=== PATIENT | male | born 1945 | race Caucasian/White ===

== ENCOUNTER 2017-12-20 11:13 | Inpatient (IN) | payer MEDICARE, BC ==
[~2017-12-20] VITALS: Ht 182.9 cm; Wt 67.3 kg
[2017-12-20] VITALS (13 sets, daily range): BP systolic 97–119; BP diastolic 51–68
[~2017-12-20 11:13] MED LIST: CALC-1197 PO; HYDR-565 PO; MULT-342 PO; OCTR1000 SQ
[2017-12-20] MEDS: levoFLOXACIN-Levaquin 500mg/D5 100 ML IV SCH (12:44)
[2017-12-20 12:45] LABS: BASOPHILS % (AUTO) 0.1 % (0-1); EOSINOPHILS % (AUTO) 0 % (0-6); HEMATOCRIT 29.5 % (42.0-52.0); HEMOGLOBIN 10.1 g/dl (14.0-17.9); LYMPHOCYTES # (AUTO) 0.6 X10'3 (1.1-4.8); LYMPHOCYTES % (AUTO) 7.8 % (21-51); MEAN CORPUSCULAR HEMOGLOBIN 29.7 PG (27.0-31.0); MEAN CORPUSCULAR HGB CONC 34.2 % (33.0-36.5); MEAN PLATELET VOLUME 9.3 FL (7.4-10.4); MONOCYTES # (AUTO) 0.5 X10'3 (0-0.9); MONOCYTES % (AUTO) 7.3 % (2-12); NEUTROPHILS # (AUTO) 6.1 X10'3 (1.8-7.7); NEUTROPHILS % (AUTO) 84.8 % (42-75); PLATELET COUNT 119 X10'3 (140-440); RED BLOOD COUNT 3.39 X10'6 (4.70-6.10); RED CELL DISTRIBUTION WIDTH 14.4 % (11.5-14.5); WHITE BLOOD COUNT 7.2 X10'3 (4.5-11.0)
[2017-12-20] MEDS: ringers solution, lacted 1,000 ML IV SCH (12:45)
[2017-12-20 13:00] LABS: ALANINE AMINOTRANSFERASE 17 U/L (12-78); ALBUMIN/GLOBULIN RATIO 0.9 (1.1-1.5); ALKALINE PHOSPHATASE 63 IU/L (46-116); ANION GAP 8 (8-16); ASPARTATE AMINO TRANSFERASE 25 U/L (10-37); BILIRUBIN,TOTAL 1.7 MG/DL (0.1-1.0); BLOOD UREA NITROGEN 15 MG/DL (7-18); BUN/CREATININE RATIO 11.4 (5.4-32.0); CHLORIDE 102 MMOL/L (99-107); CREATININE 1.32 MG/DL (0.60-1.10); GLUCOSE 124 MG/DL (70-104); POTASSIUM 3.7 MMOL/L (3.5-5.1); SODIUM 138 MMOL/L (135-145); TOTAL CARBON DIOXIDE 27.6 MMOL/L (24-32); TOTAL PROTEIN 6.2 G/DL (6.4-8.2); eGFR 54 ML/MIN
[2017-12-20] MEDS: ondansetron/PF 4mg/2ml inj IV PRN (13:44)
[2017-12-20] MEDS: acetaminophen 325mg tablet PO PRN (13:46)
[2017-12-20 17:41] LABS: INR 1.3 INR; PARTIAL THROMBOPLASTIN TIME 29 SECONDS (22-32); PROTHROMBIN TIME 13.4 SECONDS (9.0-12.0)
[2017-12-20] MEDS ORDERED: acetaminophen 1,000mg/100ml IV 100 ML IV ONE (18:00)
[2017-12-20] MEDS ORDERED: fentaNYL/PF 50MCG/1 ML 2ML syringe ONE (18:27)
[2017-12-20] MEDS ORDERED: midazolam 2 mg/2 ml injection ONE (18:27)
[2017-12-20] MEDS ORDERED: propofol inj 20 ML IV ONE (18:36)
[2017-12-20] MEDS ORDERED: ePHEDrine 50MG/ML INJ. ONE (18:48)
[2017-12-20] MEDS ORDERED: ringers solution, lacted 1,000 ML IV SCH (19:04)
[2017-12-20] MEDS ORDERED: meperidine/PF 50mg/ml syringe IV PRN ×3 (19:05)
[2017-12-20] MEDS ORDERED: morphine 2 MG/ML inj. syringe IV PRN ×2 (19:05)
[2017-12-20] MEDS ORDERED: proCHLORperazine 10 MG/2 ml inj IV PRN (19:05)
[2017-12-20] MEDS ORDERED: ondansetron/PF 4mg/2ml inj IV PRN (19:05)
[2017-12-21] VITALS: BP 127/70
[2017-12-21 00:15] VITALS: BP 98/63
[2017-12-21] MEDS: ringers solution, lacted 1,000 ML IV SCH ×2 (00:49→15:45)
[2017-12-21 04:00] VITALS: BP 122/76
[2017-12-21] MEDS: lactobacillus rhamnosus 10,000 MMU CELLS/CAPSULE PO SCH ×2 (07:15→17:37)
[2017-12-21] MEDS: acetaminophen 325mg tablet PO PRN ×4 (07:16→21:40)
[2017-12-21] MEDS: levoFLOXACIN-Levaquin 500mg/D5 100 ML IV SCH (07:16)
[2017-12-21 07:22] VITALS: BP 115/50
[2017-12-21 12:03] VITALS: BP 103/46
[2017-12-21] MEDS ORDERED: ketorolac tromethamine 15mg/ml inj. IV ONE (14:25)
[2017-12-21 20:00] VITALS: BP 96/50
[2017-12-21] MEDS ORDERED: diphenhydrAMINE 25mg capsule PO PRN (21:00)
[2017-12-22] VITALS: BP 100/47
[2017-12-22] MEDS: ringers solution, lacted 1,000 ML IV SCH ×2 (04:22→17:37)
[2017-12-22 05:59] LABS: BASOPHILS % (AUTO) 0.1 % (0-1); EOSINOPHILS % (AUTO) 0 % (0-6); HEMATOCRIT 32.6 % (42.0-52.0); HEMOGLOBIN 10.8 g/dl (14.0-17.9); LYMPHOCYTES # (AUTO) 0.7 X10'3 (1.1-4.8); LYMPHOCYTES % (AUTO) 12.1 % (21-51); MEAN CORPUSCULAR HEMOGLOBIN 29.1 PG (27.0-31.0); MEAN CORPUSCULAR HGB CONC 33.1 % (33.0-36.5); MEAN CORPUSCULAR VOLUME 87.8 FL (78-98); MEAN PLATELET VOLUME 10.1 FL (7.4-10.4); MONOCYTES # (AUTO) 0.6 X10'3 (0-0.9); MONOCYTES % (AUTO) 11.3 % (2-12); NEUTROPHILS # (AUTO) 4.2 X10'3 (1.8-7.7); NEUTROPHILS % (AUTO) 76.5 % (42-75); PLATELET COUNT 87 X10'3 (140-440); RED BLOOD COUNT 3.71 X10'6 (4.70-6.10); RED CELL DISTRIBUTION WIDTH 14.1 % (11.5-14.5); WHITE BLOOD COUNT 5.5 X10'3 (4.5-11.0)
[2017-12-22 06:41] LABS: ALANINE AMINOTRANSFERASE 28 U/L (12-78); ALBUMIN 2.3 G/DL (3.4-5.0); ALBUMIN/GLOBULIN RATIO 0.7 (1.1-1.5); ALKALINE PHOSPHATASE 53 IU/L (46-116); ANION GAP 8 (8-16); ASPARTATE AMINO TRANSFERASE 25 U/L (10-37); BILIRUBIN,TOTAL 0.8 MG/DL (0.1-1.0); BLOOD UREA NITROGEN 15 MG/DL (7-18); BUN/CREATININE RATIO 10.6 (5.4-32.0); CALCIUM 7.9 MG/DL (8.5-10.1); CHLORIDE 102 MMOL/L (99-107); CREATININE 1.41 MG/DL (0.60-1.10); GLUCOSE 107 MG/DL (70-104); POTASSIUM 4.1 MMOL/L (3.5-5.1); SODIUM 137 MMOL/L (135-145); TOTAL CARBON DIOXIDE 27.3 MMOL/L (24-32); TOTAL PROTEIN 5.7 G/DL (6.4-8.2); eGFR 50 ML/MIN
[2017-12-22 08:04] VITALS: BP 115/55
[2017-12-22] MEDS: levoFLOXACIN-Levaquin 500mg/D5 100 ML IV SCH (08:39)
[2017-12-22] MEDS: lactobacillus rhamnosus 10,000 MMU CELLS/CAPSULE PO SCH ×2 (08:39→16:46)
[2017-12-22 11:30] VITALS: BP 125/59
[2017-12-22 20:00] VITALS: BP 112/54
[2017-12-22] MEDS: HYDROcodone/acetaminophen 5mg/325mg tablet PO PRN (20:07)
[2017-12-23] VITALS: BP 125/62
[2017-12-23] MEDS: HYDROcodone/acetaminophen 5mg/325mg tablet PO PRN (00:14)
[2017-12-23 05:13] LABS: BASOPHILS % (AUTO) 0.3 % (0-1); EOSINOPHILS % (AUTO) 0.8 % (0-6); HEMATOCRIT 29.7 % (42.0-52.0); HEMOGLOBIN 10.1 g/dl (14.0-17.9); LYMPHOCYTES # (AUTO) 0.8 X10'3 (1.1-4.8); LYMPHOCYTES % (AUTO) 18.1 % (21-51); MEAN CORPUSCULAR HEMOGLOBIN 29.1 PG (27.0-31.0); MEAN CORPUSCULAR HGB CONC 34.1 % (33.0-36.5); MEAN CORPUSCULAR VOLUME 85.4 FL (78-98); MEAN PLATELET VOLUME 9.8 FL (7.4-10.4); MONOCYTES # (AUTO) 0.6 X10'3 (0-0.9); MONOCYTES % (AUTO) 15.2 % (2-12); NEUTROPHILS # (AUTO) 2.7 X10'3 (1.8-7.7); NEUTROPHILS % (AUTO) 65.6 % (42-75); PLATELET COUNT 86 X10'3 (140-440); RED BLOOD COUNT 3.48 X10'6 (4.70-6.10); RED CELL DISTRIBUTION WIDTH 14.2 % (11.5-14.5); WHITE BLOOD COUNT 4.2 X10'3 (4.5-11.0)
[2017-12-23] MEDS: ondansetron/PF 4mg/2ml inj IV PRN (05:34)
[2017-12-23 05:50] LABS: ALANINE AMINOTRANSFERASE 23 U/L (12-78); ALBUMIN 2.1 G/DL (3.4-5.0); ALBUMIN/GLOBULIN RATIO 0.7 (1.1-1.5); ALKALINE PHOSPHATASE 47 IU/L (46-116); ANION GAP 9 (8-16); ASPARTATE AMINO TRANSFERASE 25 U/L (10-37); BILIRUBIN,TOTAL 0.5 MG/DL (0.1-1.0); BLOOD UREA NITROGEN 11 MG/DL (7-18); BUN/CREATININE RATIO 9.5 (5.4-32.0); CALCIUM 7.9 MG/DL (8.5-10.1); CHLORIDE 104 MMOL/L (99-107); CREATININE 1.16 MG/DL (0.60-1.10); GLUCOSE 110 MG/DL (70-104); POTASSIUM 3.2 MMOL/L (3.5-5.1); SODIUM 140 MMOL/L (135-145); TOTAL CARBON DIOXIDE 26.6 MMOL/L (24-32); TOTAL PROTEIN 5.3 G/DL (6.4-8.2); eGFR 62 ML/MIN
[2017-12-23] MEDS: ringers solution, lacted 1,000 ML IV SCH (06:55)
[2017-12-23 07:10] VITALS: BP 128/66
[2017-12-23] MEDS: lactobacillus rhamnosus 10,000 MMU CELLS/CAPSULE PO SCH ×2 (08:07→17:39)
[2017-12-23] MEDS: levoFLOXACIN-Levaquin 500mg/D5 100 ML IV SCH (08:07)
[2017-12-23 11:33] VITALS: BP 127/68
[2017-12-23] MEDS ORDERED: LEVO500T2 PO (17:59)
== END 2017-12-23 19:06 | disposition home or self-care (01) | DRG 669 ==
LOC: SUR 3N 11:26 → PACU 17:48 → SUR 3N 21:30
PROVIDERS: ADMIT Urology; ATTEND Urology
PROC: 0TC78ZZ Extirpation of Matter from Left Ureter, Via Natural or Artificial Opening Endoscopic (ICD-10-PCS; 2017-12-20)
PROC: 0T788DZ Dilation of Bilateral Ureters with Intraluminal Device, Via Natural or Artificial Opening Endoscopic (ICD-10-PCS; 2017-12-20)
PROC: 0TCB8ZZ Extirpation of Matter from Bladder, Via Natural or Artificial Opening Endoscopic (ICD-10-PCS; 2017-12-20)
PROC: 0TC68ZZ Extirpation of Matter from Right Ureter, Via Natural or Artificial Opening Endoscopic (ICD-10-PCS; principal; 2017-12-20 18:24)
DX: N20.1 Calculus of ureter (principal); N12 Tubulo-interstitial nephritis, not specified as acute or chronic; E86.0 Dehydration; E78.00 Pure hypercholesterolemia, unspecified; I25.10 Atherosclerotic heart disease of native coronary artery without angina pectoris; N40.1 Benign prostatic hyperplasia with lower urinary tract symptoms; R33.8 Other retention of urine; N21.0 Calculus in bladder; Z95.1 Presence of aortocoronary bypass graft
CPT/HCPCS: 36415; 71045; 74176; 76000; 80053; 85025; 85610; 85730; 87070; 88300; 93005; A4402; A7000; C2617; J0131; J1885; J1956; J2250; J2405; J2704; J3010; J7030; J7120; Q0163

== ENCOUNTER 2020-08-04 06:52 | Day surgery (SDC) | payer MEDICARE, BC ==
[2020-07-30 11:23] LABS: BASOPHILS % (AUTO) 0.6 % (0-1); EOSINOPHILS % (AUTO) 0.8 % (0-6); HEMATOCRIT 38.9 % (42.0-52.0); HEMOGLOBIN 12.9 g/dl (14.0-17.9); LYMPHOCYTES # (AUTO) 1.3 X10'3 (1.1-4.8); LYMPHOCYTES % (AUTO) 25.7 % (21-51); MEAN CORPUSCULAR HEMOGLOBIN 30.1 PG (27.0-31.0); MEAN CORPUSCULAR HGB CONC 33.1 g/dL (33.0-36.5); MEAN CORPUSCULAR VOLUME 90.9 FL (78-98); MEAN PLATELET VOLUME 9.1 FL (7.4-10.4); MONOCYTES # (AUTO) 0.3 X10'3 (0-0.9); MONOCYTES % (AUTO) 5.8 % (2-12); NEUTROPHILS # (AUTO) 3.3 X10'3 (1.8-7.7); NEUTROPHILS % (AUTO) 67.1 % (42-75); PLATELET COUNT 108 X10'3 (140-440); RED BLOOD COUNT 4.28 X10'6 (4.70-6.10); RED CELL DISTRIBUTION WIDTH 15.5 % (11.5-14.5)
[2020-07-30 11:31] LABS: ALBUMIN 4.4 G/DL (3.4-5.0); ANION GAP 9 (8-16); BLOOD UREA NITROGEN 17 MG/DL (7-18); BUN/CREATININE RATIO 10.9 (5.4-32.0); CALCIUM 9.2 MG/DL (8.5-10.1); CHLORIDE 105 MMOL/L (99-107); CREATININE 1.56 MG/DL (0.60-1.10); GLUCOSE 98 MG/DL (70-104); POTASSIUM 3.7 MMOL/L (3.5-5.1); SODIUM 139 MMOL/L (135-145); TOTAL CARBON DIOXIDE 24.9 MMOL/L (24-32); eGFR 44 ML/MIN
[2020-07-30 11:33] LABS: PARTIAL THROMBOPLASTIN TIME 29 SECONDS (22-32)
[~2020-08-04] VITALS: Ht 182.9 cm; Wt 69.0 kg
[2020-08-04 07:25] VITALS: BP 128/66
[2020-08-04] MEDS ORDERED: normal saline 1,000 ML IV SCH (07:25)
[2020-08-04] MEDS ORDERED: diphenhydrAMINE 25mg capsule PO PRN (07:25)
[2020-08-04] MEDS ORDERED: LORazepam 0.5 MG tablet PO PRN (07:25)
[2020-08-04] MEDS ORDERED: LORazepam 0.5 MG tablet ONE (08:37)
[2020-08-04] MEDS ORDERED: diphenhydrAMINE 25mg capsule PO ONE (08:37)
[2020-08-04] MEDS ORDERED: METR250T PO (08:45)
[2020-08-04] MEDS ORDERED: CEPH500C2 PO (08:45)
[2020-08-04] MEDS ORDERED: [UNRECOGNIZED DRUG - CODE] (08:45)
[2020-08-04] MEDS ORDERED: FLO0.4C PO (08:45)
[2020-08-04] MEDS ORDERED: vitamin e PO (08:45)
[2020-08-04] MEDS ORDERED: vitamin A PO (08:45)
[2020-08-04] MEDS ORDERED: GABA-530 PO (08:45)
[2020-08-04] MEDS ORDERED: OCTREOTIDE ACETATE (08:45)
[2020-08-04] MEDS ORDERED: LEVO50TA8 PO (08:45)
[2020-08-04] MEDS ORDERED: CALC-1215 PO (08:45)
[2020-08-04] MEDS ORDERED: MV-M1TAB19 PO (08:45)
[2020-08-04] MEDS ORDERED: nitroGLYCERIN-Tridil 50MG/D5W 250 ML IV ONE (09:36)
[2020-08-04] MEDS ORDERED: verapamil 2.5 mg/ml inj IV ONE (09:36)
[2020-08-04] MEDS ORDERED: midazolam 2 mg/2 ml injection ONE (09:36)
[2020-08-04] MEDS ORDERED: heparin 1,000unit/ml 10ml vial 10 ML ONE (09:37)
[2020-08-04] MEDS ORDERED: iohexol 350MG/ML 100ml bottle IV ONE (09:37)
[2020-08-04] MEDS ORDERED: LIDOcaine 1% (10mg/ml)w/preservative injection 20ml MDV ONE (09:37)
[2020-08-04] MEDS ORDERED: fentaNYL/PF 50MCG/1 ML 2ML syringe ONE (09:37)
[2020-08-04 10:35] VITALS: BP 138/63
[2020-08-04] MEDS ORDERED: proCHLORperazine 10 MG/2 ml inj IV PRN (10:55)
[2020-08-04] MEDS ORDERED: OXAZEpam 15mg capsule PO PRN (10:55)
[2020-08-04] MEDS ORDERED: nitroGLYCERIN 0.4mg SUBLingual tab SL PRN (10:55)
[2020-08-04] MEDS ORDERED: HYDROcodone/acetaminophen 10/325mg tab PO PRN (10:55)
[2020-08-04] MEDS ORDERED: ondansetron/PF 4mg/2ml inj IV PRN (10:55)
[2020-08-04] MEDS ORDERED: acetaminophen 325mg tablet PO PRN (10:55)
[2020-08-04] MEDS ORDERED: HYDROcodone/acetaminophen 5mg/325mg tablet PO PRN (10:55)
[2020-08-04 11:04] VITALS: BP 136/59
[2020-08-04 11:19] VITALS: BP 129/56
[2020-08-04 11:34] VITALS: BP 133/56
[2020-08-04 11:49] VITALS: BP 130/62
== END 2020-08-04 13:00 | disposition home or self-care (01) ==
LOC: SSTAY O 06:52
PROVIDERS: ATTEND Student in an Organized Health Care Education/Training Program
DX: R94.39 Abnormal result of other cardiovascular function study (principal); T82.858A Stenosis of other vascular prosthetic devices, implants and grafts, initial encounter; I25.10 Atherosclerotic heart disease of native coronary artery without angina pectoris; I25.82 Chronic total occlusion of coronary artery; E78.5 Hyperlipidemia, unspecified; Z79.899 Other long term (current) drug therapy; Z87.442 Personal history of urinary calculi; Z85.89 Personal history of malignant neoplasm of other organs and systems; Z91.040 Latex allergy status; Y83.8 Other surgical procedures as the cause of abnormal reaction of the patient, or of later complication, without mention of misadventure at the time of the procedure; Y92.89 Other specified places as the place of occurrence of the external cause
CPT/HCPCS: 36415; 80048; 85025; 85610; 85730; 93005; 93459; 99152; 99153; C1760; C1769; C1894; J1644; J2001; J2250; J3010; J7030; Q0163; Q9967; A6258; J3490

== ENCOUNTER 2021-09-13 10:10 | Emergency (ER) | payer MEDICARE, BC ==
[~2021-09-13] VITALS: Ht 182.9 cm; Wt 78.7 kg
[~2021-09-13 10:10] MED LIST changes: -CALC-1197 PO; +CALC-1215 PO; +CEPH500C2 PO; +DOXY25TA19 PO; +FLO0.1T PO; +FLO0.4C PO; +GABA-530 PO; -HYDR-565 PO; +LEVO50TA8 PO; +MAGN400T29 PO; +METR250T PO; -MULT-342 PO; +MV-M1TAB19 PO; -OCTR1000 SQ
[2021-09-13 12:02] LABS: BASOPHILS % (AUTO) 0.2 % (0-1); EOSINOPHILS % (AUTO) 0.6 % (0-6); HEMATOCRIT 34.6 % (42.0-52.0); HEMOGLOBIN 11.5 g/dl (14.0-17.9); LYMPHOCYTES # (AUTO) 0.5 X10'3 (1.1-4.8); LYMPHOCYTES % (AUTO) 14.3 % (21-51); MEAN CORPUSCULAR HEMOGLOBIN 27.8 PG (27.0-31.0); MEAN CORPUSCULAR HGB CONC 33.2 g/dL (33.0-36.5); MEAN CORPUSCULAR VOLUME 83.8 FL (78-98); MEAN PLATELET VOLUME 9.9 FL (7.4-10.4); MONOCYTES # (AUTO) 0.3 X10'3 (0-0.9); MONOCYTES % (AUTO) 8.6 % (2-12); NEUTROPHILS # (AUTO) 2.6 X10'3 (1.8-7.7); NEUTROPHILS % (AUTO) 76.3 % (42-75); PLATELET COUNT 67 X10'3 (140-440); RED BLOOD COUNT 4.13 X10'6 (4.70-6.10); RED CELL DISTRIBUTION WIDTH 17.3 % (11.5-14.5); WHITE BLOOD COUNT 3.4 X10'3 (4.5-11.0)
[2021-09-13 12:14] LABS: ALANINE AMINOTRANSFERASE 107 U/L (12-78); ALBUMIN 2.6 G/DL (3.4-5.0); ALBUMIN/GLOBULIN RATIO 0.6 (1.1-1.5); ALKALINE PHOSPHATASE 170 IU/L (46-116); ANION GAP 10 (8-16); ASPARTATE AMINO TRANSFERASE 68 U/L (10-37); BLOOD UREA NITROGEN 30 MG/DL (7-18); BUN/CREATININE RATIO 14.6 (5.4-32.0); CALCIUM 8.4 MG/DL (8.5-10.1); CHLORIDE 104 MMOL/L (99-107); CREATININE 2.05 MG/DL (0.60-1.10); GLUCOSE 107 MG/DL (70-104); POTASSIUM 4.4 MMOL/L (3.5-5.1); SODIUM 137 MMOL/L (135-145); TOTAL CARBON DIOXIDE 22.8 MMOL/L (24-32); TOTAL PROTEIN 6.9 G/DL (6.4-8.2); eGFR 32 ML/MIN
[2021-09-13 13:19] LABS: CLARITY,URINE SLIGHTLY CLOUDY (Clear); COLOR,URINE YELLOW (Yellow); GLUCOSE, URINE NEGATIVE (Neg); KETONES,URINE TRACE mg/dl (Neg); NITRITES, URINE NEGATIVE (Neg); OCCULT BLOOD,URINE SMALL (Neg); PROTEIN,URINE 30 mg/dl (Neg); UA COLLECTION TYPE CLN CATCH MIDSTREAM
[2021-09-13 13:20] LABS: LEUKOCYTE ESTERASE ,URINE MODERATE (Neg); UROBILINOGEN,URINE 0.2 E.U/dL (0.2-1.0)
[2021-09-13 13:22] LABS: WBC,URINE TNTC /HPF (0-4)
[2021-09-13 13:23] LABS: BACTERIA,URINE 1+ /HPF (Neg); SQUAMOUS EPITHELIAL CELL,UR FEW /LPF (FEW)
[2021-09-13 13:24] LABS: YEAST MODERATE /HPF (NEGATIVE)
[2021-09-13] MEDS ORDERED: CEFTRIAXONE 500 MG VIAL IM ONE (13:30)
[2021-09-13] MEDS ORDERED: ringers solution, lacted 1,000 ML IV ONE (13:35)
[2021-09-13] MEDS ORDERED: CefTRIAXone 1000mg IM Kit (w/lidocaine diluent) IM ONE (13:45)
[2021-09-13] MEDS ORDERED: CefTRIAXone 1000mg inj IV ONE (14:00)
[2021-09-13] MEDS ORDERED: normal saline 1000ml 1,000 ML IV ONE (14:45)
[2021-09-13 15:31] VITALS: BP 118/60
== END 2021-09-13 15:34 | disposition home or self-care (01) ==
LOC: ER 10:10
DX: N39.0 Urinary tract infection, site not specified (principal); E86.0 Dehydration; R42 Dizziness and giddiness; Z91.040 Latex allergy status; Z79.2 Long term (current) use of antibiotics; Z79.899 Other long term (current) drug therapy; Z72.89 Other problems related to lifestyle; Z95.5 Presence of coronary angioplasty implant and graft; Z86.2 Personal history of diseases of the blood and blood-forming organs and certain disorders involving the immune mechanism
CPT/HCPCS: 36415; 71045; 80053; 81001; 84484; 85025; 93005; 96365; 96374; 99284; 99285; J0696; J7030

== ENCOUNTER 2021-09-14 21:46 | Inpatient (IN) | payer MEDICARE, BC ==
[~2021-09-14] VITALS: Ht 182.9 cm; Wt 75.5 kg
[2021-09-14 22:22] LABS: BASOPHILS % (AUTO) 0.4 % (0-1); EOSINOPHILS % (AUTO) 0.8 % (0-6); HEMATOCRIT 33.7 % (42.0-52.0); LYMPHOCYTES # (AUTO) 0.3 X10'3 (1.1-4.8); LYMPHOCYTES % (AUTO) 9.6 % (21-51); MEAN CORPUSCULAR HEMOGLOBIN 27.4 PG (27.0-31.0); MEAN CORPUSCULAR HGB CONC 32.5 g/dL (33.0-36.5); MEAN CORPUSCULAR VOLUME 84.3 FL (78-98); MEAN PLATELET VOLUME 10.7 FL (7.4-10.4); MONOCYTES # (AUTO) 0.1 X10'3 (0-0.9); MONOCYTES % (AUTO) 2.2 % (2-12); NEUTROPHILS # (AUTO) 2.7 X10'3 (1.8-7.7); PLATELET COUNT 57 X10'3 (140-440); RED CELL DISTRIBUTION WIDTH 17.5 % (11.5-14.5); WHITE BLOOD COUNT 3.1 X10'3 (4.5-11.0)
[2021-09-14 22:39] LABS: ALANINE AMINOTRANSFERASE 77 U/L (12-78); ALBUMIN 2.2 G/DL (3.4-5.0); ALBUMIN/GLOBULIN RATIO 0.6 (1.1-1.5); ALKALINE PHOSPHATASE 252 IU/L (46-116); ANION GAP 11 (8-16); ASPARTATE AMINO TRANSFERASE 87 U/L (10-37); BILIRUBIN,DIRECT 1.3 MG/DL (0-0.3); BILIRUBIN,TOTAL 1.9 MG/DL (0.1-1.0); BLOOD UREA NITROGEN 26 MG/DL (7-18); CALCIUM 7.8 MG/DL (8.5-10.1); CHLORIDE 105 MMOL/L (99-107); GLUCOSE 97 MG/DL (70-104); LIPASE 50 U/L (73-393); SODIUM 135 MMOL/L (135-145); TOTAL CARBON DIOXIDE 18.7 MMOL/L (24-32); TOTAL PROTEIN 6.1 G/DL (6.4-8.2); eGFR 33 ML/MIN
[2021-09-14 23:11] LABS: ANISOCYTOSIS 1+; PLATELET ESTIMATE DECREASED
[2021-09-14 23:12] LABS: BURR CELLS FEW; LARGE PLATELETS FEW
[2021-09-14] MEDS ORDERED: CefTRIAXone/D5W-Rocephin 1gm 50 ML IV ONE (23:35)
[2021-09-14] MEDS ORDERED: normal saline 1000ml 1,000 ML IV ONE (23:45)
[2021-09-14 23:50] LABS: UA COLLECTION TYPE CLN CATCH MIDSTREAM
[2021-09-14 23:51] LABS: CLARITY,URINE CLOUDY (Clear); COLOR,URINE DARK YELLOW (Yellow); GLUCOSE, URINE NEGATIVE (Neg); KETONES,URINE NEGATIVE (Neg); OCCULT BLOOD,URINE SMALL (Neg); PROTEIN,URINE 30 mg/dl (Neg)
[2021-09-14 23:52] LABS: LEUKOCYTE ESTERASE ,URINE MODERATE (Neg); NITRITES, URINE NEGATIVE (Neg); UROBILINOGEN,URINE 0.2 E.U/dL (0.2-1.0)
[2021-09-14 23:58] LABS: SQUAMOUS EPITHELIAL CELL,UR FEW /LPF (FEW); WBC,URINE TNTC /HPF (0-4)
[2021-09-14 23:59] LABS: YEAST MANY /HPF (NEGATIVE)
[2021-09-15 00:01] LABS: BACTERIA,URINE NONE SEEN /HPF (Neg)
--- NOTE | 2021-09-15 01:11 | NUR ---
u/s tech at bedside at this time.
[2021-09-15] MEDS ORDERED: metroNIDAZOLE-Flagyl 500mg/NS 100 ML IV STA (01:46)
[2021-09-15] MEDS ORDERED: DIPH-186 PO (02:34)
[2021-09-15] MEDS ORDERED: mag hydrox/Alum hydrox/simeth 30ml oral suspension PO PRN (03:20)
[2021-09-15] MEDS ORDERED: magnesium 2GM in 50ml NS 50 ML IV PRN (03:20)
[2021-09-15] MEDS ORDERED: HYDROcodone/acetaminophen 5mg/325mg tablet PO PRN (03:20)
[2021-09-15] MEDS ORDERED: magnesium Cl slow-release 64mg tablet PO PRN (03:20)
[2021-09-15] MEDS ORDERED: magnesium 4gm in 100ml NS 100 ML IV PRN (03:20)
[2021-09-15] MEDS ORDERED: morphine 2 MG/ML inj. syringe IV PRN (03:20)
[2021-09-15] MEDS ORDERED: potassium Cl 40MEQ/1/2NS 520ml 520 ML IV PRN ×2 (03:20)
[2021-09-15] MEDS ORDERED: acetaminophen 325mg tablet PO PRN (03:20)
[2021-09-15] MEDS ORDERED: potassium Cl 20 mEq SR tablet PO PRN ×2 (03:20)
[2021-09-15] MEDS: normal saline 1000ml 1,000 ML IV SCH ×3 (03:42→19:20)
[2021-09-15] MEDS: K and/or MAG REPLACEMENT MC SCH ×2 (07:50→20:00)
[2021-09-15] MEDS: cefepime 1GM in D5W 50mL 50 ML IV SCH ×2 (08:37→20:09)
[2021-09-15] MEDS: levoTHYROXINE 25mcg tablet PO SCH (08:37)
--- NOTE | 2021-09-15 10:46 | NUR ---
pt assisted to restroom. gurney sheets changed.
--- NOTE | 2021-09-15 13:40 | NUR ---
Pt is awake and alert. Denies pain. Given lunch tray. IVF NS @ 125ml/hr.
--- NOTE | 2021-09-15 16:02 | NUR ---
Nutrition Consult "short gut syndrome, recent TPN": Pt admit DX sepsis, UTI, liver mass suspicious for neoplasm, RAVIN on CKD, pancytopenia, transaminitis, and fatigue per EMR. Pt hx colon CA and carcinoid tumor requiring chemotherapy last two weeks ago; follows Dr. Segal for short gut per MD note. RD TC w/ Dr. Segal who reports pt has ~130cm small bowel left following multiple GI surgeries r/t neuroendocrine tumor and required TPN to meet nutrition needs/repletion/wt gain. Per Dr. Segal, pt successfully gaining wt w/ peak wt 78.6kg February this year w/ most recent 76kg 05/26 this year and weaned from TPN ~[address] d/w pt hospitalist Dr. Hall who reports no TPN at this juncture but would appreciate evaluation of nutrition status. Pt pending scaled wt this admit w/ reported wt stable past 6 months compared to MD report. On regular diet this admit pending PO intake hx w/ noted nausea,vomiting, and diarrhea per EMR. Recent chemotherapy likely to impact PO intake status in addition to short gut syndrome. Will continue to monitor for further nutrition intervention needs pending further information this admit. IF nausea/vomiting/diarrhea persists may require PN to optimize nutrition status given hx chemotherapy/short gut syndrome; recs below. Rec: 1. continue regular diet; encourage PO 2. Monitor for ONS needs pending PO hx/tolerance this admit 3. may benefit from bariatric MVI given short gut syndrome hx per MD discretion 4. consider routine anti-diarrheal to assist short gut syndrome side effects pending further PO GI tolerance documentation per MD discretion 5. IF persistent GI intolerance of PO meals; consider TPN given hx short gut syndrome. IF continuous TPN via pt central port; recommend 2:1 Clinimix E 5/20 at 102ml/hr goal w/ separate 100ml 20% intralipids to run for 12 hours daily at 8.33ml/hr. Would provide 2448ml volume/day, 122g AA, 490g DEX (4.50mg/kg/min), and 2354 total kcals. 6. scaled wt this admit; subsequent weekly wts Addendum: 09/15/21 at [address] Amended: Links added.
--- NOTE | 2021-09-15 19:50 | NUR ---
Attempted to given report to the surgical floor.
--- NOTE | 2021-09-15 20:19 | NUR ---
Report given to TR Peterson on the Surgical floor.
[2021-09-15 21:00] VITALS: BP 134/81
[2021-09-15] MEDS: tamsulosin 0.4mg capsule PO SCH (21:00)
[2021-09-15] MEDS: temazepam 15mg capsule PO PRN (22:51)
[2021-09-16] VITALS: BP 127/65
[2021-09-16] MEDS: cefepime 1GM in D5W 50mL 50 ML IV SCH ×3 (00:01→15:25)
--- NOTE | 2021-09-16 06:08 | NUR ---
Patient in room [facility] 340. I have received report from TR Peterson and had the opportunity to ask questions and assume patient care.
[2021-09-16 06:10] LABS: BASOPHILS % (AUTO) 0.5 % (0-1); EOSINOPHILS # (AUTO) 0.1 X10'3 (0-0.9); EOSINOPHILS % (AUTO) 1.6 % (0-6); HEMATOCRIT 29.9 % (42.0-52.0); LYMPHOCYTES # (AUTO) 1.1 X10'3 (1.1-4.8); LYMPHOCYTES % (AUTO) 27.3 % (21-51); MEAN CORPUSCULAR HEMOGLOBIN 27.5 PG (27.0-31.0); MEAN CORPUSCULAR HGB CONC 33.3 g/dL (33.0-36.5); MEAN CORPUSCULAR VOLUME 82.4 FL (78-98); MONOCYTES # (AUTO) 0.5 X10'3 (0-0.9); MONOCYTES % (AUTO) 13.2 % (2-12); NEUTROPHILS # (AUTO) 2.2 X10'3 (1.8-7.7); NEUTROPHILS % (AUTO) 57.4 % (42-75); PLATELET COUNT 66 X10'3 (140-440); RED BLOOD COUNT 3.63 X10'6 (4.70-6.10); RED CELL DISTRIBUTION WIDTH 17.3 % (11.5-14.5); WHITE BLOOD COUNT 3.9 X10'3 (4.5-11.0)
--- NOTE | 2021-09-16 06:21 | NUR ---
Problems reprioritized. Patient report given, questions answered & plan of care reviewed with TR Ramirez.
[2021-09-16 06:22] LABS: ALANINE AMINOTRANSFERASE 74 U/L (12-78); ALBUMIN 1.9 G/DL (3.4-5.0); ALBUMIN/GLOBULIN RATIO 0.5 (1.1-1.5); ALKALINE PHOSPHATASE 262 IU/L (46-116); ANION GAP 10 (8-16); ASPARTATE AMINO TRANSFERASE 66 U/L (10-37); BILIRUBIN,TOTAL 1.1 MG/DL (0.1-1.0); BLOOD UREA NITROGEN 18 MG/DL (7-18); BUN/CREATININE RATIO 11.2 (5.4-32.0); CALCIUM 7.4 MG/DL (8.5-10.1); CHLORIDE 112 MMOL/L (99-107); CREATININE 1.61 MG/DL (0.60-1.10); GLUCOSE 97 MG/DL (70-104); MAGNESIUM 1.6 MG/DL (1.5-2.4); SODIUM 142 MMOL/L (135-145); TOTAL CARBON DIOXIDE 20.4 MMOL/L (24-32); TOTAL PROTEIN 5.4 G/DL (6.4-8.2); eGFR 42 ML/MIN
[2021-09-16 07:00] VITALS: BP 131/67
[2021-09-16] MEDS: levoTHYROXINE 25mcg tablet PO SCH (07:38)
[2021-09-16] MEDS: normal saline 1000ml 1,000 ML IV SCH ×3 (07:41→20:18)
[2021-09-16 08:00] VITALS: BP 154/69
[2021-09-16] MEDS: K and/or MAG REPLACEMENT MC SCH ×2 (08:00→18:31)
--- NOTE | 2021-09-16 09:39 | NUR ---
Malnutrition Consult: Pt reports 2-13 pounds lost past 3 months per RN Malnutrition Screen this admit. Pt has overall stable wt hx since February using current reported wt pending scaled wt this admit; see prior RD note for full details. Pt has no edema/wounds, no significant weakness noted, and previously receiving TPN for main nutrition intake ~1week [employer]OPER given hx short gut syndrome. RD d/w RN regarding No Concentrated Sweets diet addition to regular if MD agreeable. In meantime dietary notified to not send: sugar-containing condiments, juices, raw vegetables, canned fruits, and caffeine w/ meals. Essentially NCS diet w/ further restrictions to optimize PO tolerance w/ hx short gut syndrome. Pt lacks minimum malnutrition criteria at this time. Will monitor for additional criteria this admit. Rec: 1. advance to regular/No Concentrated Sweets diet if MD agreeable; encourage PO 2. limit high sugar-containing products, high insoluble fiber products, and caffeine given short gut syndrome hx 3. Monitor for ONS needs pending PO hx/tolerance this admit 4. may benefit from bariatric MVI given short gut syndrome hx per MD discretion 5. consider routine anti-diarrheal to assist short gut syndrome side effects pending further PO GI tolerance documentation per MD discretion 6. IF persistent GI intolerance of PO meals; consider TPN given hx short gut syndrome. IF continuous TPN via pt central port; recommend 2:1 Clinimix E 5/20 at 102ml/hr goal w/ separate 100ml 20% intralipids to run for 12 hours daily at 8.33ml/hr. Would provide 2448ml volume/day, 122g AA, 490g DEX (4.50mg/kg/min), and 2354 total kcals. 7. scaled wt this admit; subsequent weekly wts Addendum: 09/16/21 at [address] Amended: Links added.
[2021-09-16] MEDS: fluconazole 100mg tablet PO SCH (10:46)
--- NOTE | 2021-09-16 10:46 | NUR ---
Dr. Hall in to see patient.
[2021-09-16 12:00] VITALS: BP_SYST 114; BP_SYST 124; BP_SYST 125; BP_DIAS 61; BP_DIAS 64; BP_DIAS 65
--- NOTE | 2021-09-16 14:13 | NUR ---
PAGER ID: [phone] MESSAGE: [id number]- Nellie, Deng- positive BC. gram + rods 37 hours from IV anerobic bottle. - Ashley [phone]
--- NOTE | 2021-09-16 15:55 | NUR ---
PAGER ID: [phone] MESSAGE: [id number]- Deng Ballard- states normally flushes groshong tunneled catheter in his chest with heparin daily. Has not been able to flush it for several days now and concerned it will clot off. Ok to have order to flush daily? - Ashley [phone]
[2021-09-16] MEDS ORDERED: heparin sodium, porcine/PF 100unit/ml 5ML syringe IV SCH ×2 (16:15)
--- NOTE | 2021-09-16 18:04 | NUR ---
Problems reprioritized. Patient report given, questions answered & plan of care reviewed with TR Peterson.
--- NOTE | 2021-09-16 18:24 | NUR ---
Patient stated he had his bring in his home meds which he took. Educated patient that he cannot have home meds in room and take them without orders. Let him know that they were reported in his med rec however held by Dr. Dr. Hall notified. PAGER ID: [phone] MESSAGE: MarcelinoLDeng Russo- patient has home meds in room Lomotil, supplements, flagyl and cephalexin all PO his brought in and he took without telling anyone. These meds were held on his med rec. Do you want to resume them?- Ashley [phone]
--- NOTE | 2021-09-16 18:34 | NUR ---
Problems reprioritized. Patient report given, questions answered & plan of care reviewed with TR Peterson.
[2021-09-16 20:00] VITALS: BP_SYST 128; BP_SYST 131; BP_SYST 135; BP_DIAS 63; BP_DIAS 66; BP_DIAS 72
[2021-09-16] MEDS: cephalexin 500mg capsule PO SCH (20:00)
[2021-09-16] MEDS: diphenoxylate/atropine tablet (Lomotil) PO PRN (20:18)
[2021-09-16] MEDS: temazepam 15mg capsule PO PRN (20:18)
[2021-09-16] MEDS: tamsulosin 0.4mg capsule PO SCH (20:18)
[2021-09-17] VITALS: BP 120/66
[2021-09-17] MEDS: cefepime 1GM in D5W 50mL 50 ML IV SCH ×3 (00:16→15:54)
[2021-09-17] MEDS: normal saline 1000ml 1,000 ML IV SCH ×2 (04:10→13:05)
--- NOTE | 2021-09-17 06:19 | NUR ---
Problems reprioritized. Patient report given, questions answered & plan of care reviewed with TR Ramirez.
[2021-09-17 06:26] LABS: BASOPHILS % (AUTO) 0.5 % (0-1); EOSINOPHILS % (AUTO) 1.1 % (0-6); HEMATOCRIT 30.2 % (42.0-52.0); LYMPHOCYTES % (AUTO) 23.2 % (21-51); MEAN CORPUSCULAR HEMOGLOBIN 27.6 PG (27.0-31.0); MEAN CORPUSCULAR HGB CONC 33.2 g/dL (33.0-36.5); MEAN CORPUSCULAR VOLUME 83.2 FL (78-98); MEAN PLATELET VOLUME 9.4 FL (7.4-10.4); MONOCYTES # (AUTO) 0.4 X10'3 (0-0.9); MONOCYTES % (AUTO) 9.4 % (2-12); NEUTROPHILS # (AUTO) 2.7 X10'3 (1.8-7.7); NEUTROPHILS % (AUTO) 65.8 % (42-75); PLATELET COUNT 95 X10'3 (140-440); RED BLOOD COUNT 3.62 X10'6 (4.70-6.10); RED CELL DISTRIBUTION WIDTH 17.6 % (11.5-14.5); WHITE BLOOD COUNT 4.2 X10'3 (4.5-11.0)
--- NOTE | 2021-09-17 06:39 | NUR ---
Patient in room [facility] 340. I have received report from TR Peterson and had the opportunity to ask questions and assume patient care.
[2021-09-17 07:00] VITALS: BP 112/55
[2021-09-17 07:01] LABS: ALANINE AMINOTRANSFERASE 68 U/L (12-78); ALBUMIN/GLOBULIN RATIO 0.6 (1.1-1.5); ALKALINE PHOSPHATASE 323 IU/L (46-116); ANION GAP 9 (8-16); ASPARTATE AMINO TRANSFERASE 66 U/L (10-37); BILIRUBIN,TOTAL 1.1 MG/DL (0.1-1.0); BLOOD UREA NITROGEN 14 MG/DL (7-18); BUN/CREATININE RATIO 8.4 (5.4-32.0); CALCIUM 7.4 MG/DL (8.5-10.1); CHLORIDE 112 MMOL/L (99-107); CREATININE 1.66 MG/DL (0.60-1.10); GLUCOSE 89 MG/DL (70-104); MAGNESIUM 1.5 MG/DL (1.5-2.4); POTASSIUM 3.9 MMOL/L (3.5-5.1); SODIUM 141 MMOL/L (135-145); TOTAL CARBON DIOXIDE 20.1 MMOL/L (24-32); TOTAL PROTEIN 5.5 G/DL (6.4-8.2); eGFR 41 ML/MIN
[2021-09-17] MEDS ORDERED: heparin sodium, porcine/PF 100unit/ml 5ML syringe IV SCH ×3 (07:35→20:00)
--- NOTE | 2021-09-17 07:55 | NUR ---
PAGER ID: [phone] MESSAGE: [id number]-Nellie,B- +orthstat lying 112/55 Hr 58, sitting 76/46 Hr 60, standing 61/35 Hr 85. Symptomatic c/o dizzy/lightheaded when standing. Feeling very weak. Has NS @125.- Ashley [phone]
[2021-09-17] MEDS: cephalexin 500mg capsule PO SCH ×2 (07:57→21:19)
[2021-09-17] MEDS: levoTHYROXINE 25mcg tablet PO SCH (07:57)
[2021-09-17] MEDS: fluconazole 100mg tablet PO SCH (07:57)
[2021-09-17 08:00] VITALS: BP_SYST 112; BP_SYST 61; BP_SYST 76; BP_DIAS 35; BP_DIAS 46; BP_DIAS 55
[2021-09-17] MEDS: K and/or MAG REPLACEMENT MC SCH ×2 (08:00→20:00)
[2021-09-17] MEDS ORDERED: normal saline 1000ml 1,000 ML IVB ONE (09:00)
[2021-09-17 12:00] VITALS: BP 149/80
--- NOTE | 2021-09-17 16:14 | NUR ---
Patient's spouse Evie called asking for updates regarding patient's low BP this morning after she had spoken to him. Let her know that patient had normal saline bolus, recent BP and josselyn max was dc'd. Patient asking to speak to Dr. Hall. Dr. Singh notified.
--- NOTE | 2021-09-17 17:05 | NUR ---
Pt stable and disconnected from IV and wheeled to CT with staff. Pt at CT at this time.
--- NOTE | 2021-09-17 18:13 | NUR ---
Pt back from CT at 1745. Reconnected back to IVF; he is stable and resting comfortably. Will continue to monitor.
[2021-09-17] MEDS ORDERED: LIDOcaine 2% 10ml TOPICAL JELLY (Urojet) TP ONE (18:15)
--- NOTE | 2021-09-17 18:35 | NUR ---
Problems reprioritized. Patient report given, questions answered & plan of care reviewed with TR Lanire.
--- NOTE | 2021-09-17 18:37 | NUR ---
Student documentation: I have reviewed and agree with all interventions, assessments performed and documented by SN Karol. Student Medication Administration: For this medication-pass time frame, all medication were reviewed, dispensed, administered and documented per hospital policy by SN Karol.
--- NOTE | 2021-09-17 18:51 | NUR ---
Patient in room [facility] 340. I have received report from Karol DAVIS and Ashley ARMANDO and had the opportunity to ask questions and assume patient care.
[2021-09-17 20:00] VITALS: BP_SYST 126; BP_SYST 95; BP_SYST 96; BP_DIAS 62
[2021-09-17] MEDS: diphenoxylate/atropine tablet (Lomotil) PO PRN (21:23)
[2021-09-18 00:25] VITALS: BP 145/77
[2021-09-18] MEDS: cefepime 1GM in D5W 50mL 50 ML IV SCH ×3 (01:45→15:51)
[2021-09-18] MEDS: normal saline 1000ml 1,000 ML IV SCH ×4 (01:45→21:33)
[2021-09-18 06:25] LABS: BASOPHILS % (AUTO) 0.3 % (0-1); EOSINOPHILS % (AUTO) 0.4 % (0-6); HEMATOCRIT 29.7 % (42.0-52.0); HEMOGLOBIN 9.8 g/dl (14.0-17.9); LYMPHOCYTES # (AUTO) 0.9 X10'3 (1.1-4.8); LYMPHOCYTES % (AUTO) 12.8 % (21-51); MEAN CORPUSCULAR HEMOGLOBIN 27.3 PG (27.0-31.0); MEAN CORPUSCULAR HGB CONC 33.2 g/dL (33.0-36.5); MEAN CORPUSCULAR VOLUME 82.4 FL (78-98); MEAN PLATELET VOLUME 9.3 FL (7.4-10.4); MONOCYTES # (AUTO) 0.5 X10'3 (0-0.9); MONOCYTES % (AUTO) 6.6 % (2-12); NEUTROPHILS # (AUTO) 5.5 X10'3 (1.8-7.7); NEUTROPHILS % (AUTO) 79.9 % (42-75); PLATELET COUNT 130 X10'3 (140-440); RED CELL DISTRIBUTION WIDTH 17.5 % (11.5-14.5); WHITE BLOOD COUNT 6.9 X10'3 (4.5-11.0)
[2021-09-18 06:36] LABS: ALANINE AMINOTRANSFERASE 59 U/L (12-78); ALBUMIN/GLOBULIN RATIO 0.5 (1.1-1.5); ALKALINE PHOSPHATASE 337 IU/L (46-116); ANION GAP 11 (8-16); ASPARTATE AMINO TRANSFERASE 63 U/L (10-37); BILIRUBIN,TOTAL 1.3 MG/DL (0.1-1.0); BLOOD UREA NITROGEN 12 MG/DL (7-18); BUN/CREATININE RATIO 7.3 (5.4-32.0); CALCIUM 7.5 MG/DL (8.5-10.1); CHLORIDE 110 MMOL/L (99-107); CREATININE 1.64 MG/DL (0.60-1.10); GLUCOSE 96 MG/DL (70-104); MAGNESIUM 1.5 MG/DL (1.5-2.4); POTASSIUM 3.8 MMOL/L (3.5-5.1); SODIUM 139 MMOL/L (135-145); TOTAL PROTEIN 5.7 G/DL (6.4-8.2); eGFR 41 ML/MIN
--- NOTE | 2021-09-18 06:38 | NUR ---
Problems reprioritized. Patient report given, questions answered & plan of care reviewed with Lourdes ARMANDO.
--- NOTE | 2021-09-18 06:46 | NUR ---
Patient in room [facility] 340. I have received report from orestes eagle and had the opportunity to ask questions and assume patient care.
[2021-09-18 08:00] VITALS: BP_SYST 114; BP_SYST 117; BP_SYST 83; BP_DIAS 48; BP_DIAS 50; BP_DIAS 53
[2021-09-18] MEDS: K and/or MAG REPLACEMENT MC SCH ×2 (08:00→20:00)
[2021-09-18] MEDS: cephalexin 500mg capsule PO SCH ×2 (08:27→20:10)
[2021-09-18] MEDS: fluconazole 100mg tablet PO SCH (08:28)
[2021-09-18] MEDS: levoTHYROXINE 25mcg tablet PO SCH (08:31)
--- NOTE | 2021-09-18 10:03 | NUR ---
Spoke to patient regarding his Rogers tunneled catheter in his right anterior chest. Per patient this was placed for him to receive TPN, last his TPN was given was 2 weeks ago. Patient flushes and instills heparin daily to his ports and his home health nurse draws blood out of his rogers. Patient states he also gets Sandostatin once a month in his Rogers port.
[2021-09-18] MEDS ORDERED: PERFLUTREN PROTEIN-A MICROSPHR (Optison) 0.22 MG/ML 3ML VIAL IV PRN (10:55)
[2021-09-18 11:00] VITALS: BP 124/63
[2021-09-18] MEDS: diphenoxylate/atropine tablet (Lomotil) PO SCH ×2 (15:50→23:44)
[2021-09-18] MEDS: metroNIDAZOLE 500mg tablet PO SCH ×2 (15:50→23:44)
[2021-09-18 19:00] VITALS: BP_SYST 118; BP_SYST 135; BP_DIAS 51; BP_DIAS 65; BP_DIAS 68
[2021-09-18 20:00] VITALS: BP 135/68
[2021-09-18] MEDS: ondansetron/PF 4mg/2ml inj IV PRN (21:32)
[2021-09-19] VITALS: BP 127/70
[2021-09-19] MEDS: normal saline 1000ml 1,000 ML IV SCH ×3 (03:20→20:13)
[2021-09-19] MEDS: heparin sodium, porcine/PF 100unit/ml 5ML syringe IV SCH ×2 (03:24→03:25)
[2021-09-19 04:02] LABS: BASOPHILS # (AUTO) 0.1 X10'3 (0-0.2); BASOPHILS % (AUTO) 1.5 % (0-1); EOSINOPHILS # (AUTO) 0.1 X10'3 (0-0.9); EOSINOPHILS % (AUTO) 1.1 % (0-6); HEMATOCRIT 28.4 % (42.0-52.0); HEMOGLOBIN 9.5 g/dl (14.0-17.9); LYMPHOCYTES # (AUTO) 1.1 X10'3 (1.1-4.8); LYMPHOCYTES % (AUTO) 19.5 % (21-51); MEAN CORPUSCULAR HEMOGLOBIN 27.7 PG (27.0-31.0); MEAN CORPUSCULAR HGB CONC 33.5 g/dL (33.0-36.5); MEAN CORPUSCULAR VOLUME 82.8 FL (78-98); MEAN PLATELET VOLUME 8.9 FL (7.4-10.4); MONOCYTES # (AUTO) 0.5 X10'3 (0-0.9); MONOCYTES % (AUTO) 8.2 % (2-12); NEUTROPHILS # (AUTO) 3.9 X10'3 (1.8-7.7); NEUTROPHILS % (AUTO) 69.7 % (42-75); PLATELET COUNT 137 X10'3 (140-440); RED BLOOD COUNT 3.42 X10'6 (4.70-6.10); RED CELL DISTRIBUTION WIDTH 17.3 % (11.5-14.5); WHITE BLOOD COUNT 5.5 X10'3 (4.5-11.0)
[2021-09-19 04:42] LABS: ANION GAP 9 (8-16); BLOOD UREA NITROGEN 11 MG/DL (7-18); BUN/CREATININE RATIO 7.3 (5.4-32.0); CALCIUM 7.2 MG/DL (8.5-10.1); CHLORIDE 112 MMOL/L (99-107); GLUCOSE 93 MG/DL (70-104); MAGNESIUM 1.6 MG/DL (1.5-2.4); POTASSIUM 3.8 MMOL/L (3.5-5.1); SODIUM 143 MMOL/L (135-145); TOTAL CARBON DIOXIDE 21.8 MMOL/L (24-32); eGFR 46 ML/MIN
[2021-09-19 04:43] LABS: ALANINE AMINOTRANSFERASE 56 U/L (12-78); ALBUMIN 1.9 G/DL (3.4-5.0); ALBUMIN/GLOBULIN RATIO 0.5 (1.1-1.5); ALKALINE PHOSPHATASE 295 IU/L (46-116); ASPARTATE AMINO TRANSFERASE 60 U/L (10-37); BILIRUBIN,TOTAL 1.4 MG/DL (0.1-1.0); TOTAL PROTEIN 5.5 G/DL (6.4-8.2)
--- NOTE | 2021-09-19 05:22 | NUR ---
Student documentation: I have reviewed and agree with all interventions, assessments performed and documented by [Angel Luis DAVIS]. Student Medication Administration: For this medication-pass time frame, all medication were reviewed, dispensed, administered and documented per hospital policy by [Angel Luis DAVIS].
--- NOTE | 2021-09-19 06:10 | NUR ---
Patient in room [facility] 340. I have received report from NOC shift RN and had the opportunity to ask questions and assume patient care.
--- NOTE | 2021-09-19 06:42 | NUR ---
Patient in room [facility] 340. I have received report from Fay ARMANDO and had the opportunity to ask questions and assume patient care.
[2021-09-19] MEDS: K and/or MAG REPLACEMENT MC SCH ×2 (07:08→20:00)
[2021-09-19] MEDS: levoTHYROXINE 25mcg tablet PO SCH (07:08)
[2021-09-19] MEDS: metroNIDAZOLE 500mg tablet PO SCH ×3 (07:09→23:14)
[2021-09-19] MEDS: diphenoxylate/atropine tablet (Lomotil) PO SCH ×3 (07:09→23:14)
[2021-09-19] MEDS: fluconazole 100mg tablet PO SCH (07:09)
[2021-09-19] MEDS: acetaminophen 325mg tablet PO PRN ×2 (07:10→20:22)
[2021-09-19] MEDS: cephalexin 500mg capsule PO SCH ×2 (07:11→20:19)
[2021-09-19 08:00] VITALS: BP_SYST 112; BP_SYST 113; BP_SYST 134; BP_SYST 145; BP_DIAS 58; BP_DIAS 60; BP_DIAS 64; BP_DIAS 74
[2021-09-19 11:00] VITALS: BP 145/74
--- NOTE | 2021-09-19 13:54 | NUR ---
Reassessment: Per MD note, pt continues w/ decreased appetite and watery stools, placed on Full liquid diet 09/18 w/ 100% of first two meals now 35% intake today for breakfast. Pt previously 0-25% intake on Regular/NCS diet not meeting needs. TC to RN recommendation to initiate PN if MD agreeable given pt continues to not tolerate PO diet. LBM 09/18. Will continue to monitor for nutrition support needs and make recommendations as appropriate. Rec: 1. IF persistent GI intolerance of PO meals; consider TPN given hx short gut syndrome. IF continuous TPN via pt central port; recommend 2:1 Clinimix E 5/20 at 102ml/hr goal w/ separate 100ml 20% intralipids to run for 12 hours daily at 8.33ml/hr. Would provide 2448ml volume/day, 122g AA, 490g DEX (4.50mg/kg/min), and 2354 total kcals. 2. advance to regular/No Concentrated Sweets diet if MD agreeable; encourage PO 3. limit high sugar-containing products, high insoluble fiber products, and caffeine given short gut syndrome hx 4. Monitor for ONS needs pending PO hx/tolerance this admit 5. may benefit from bariatric MVI given short gut syndrome hx per MD discretion 6. consider routine anti-diarrheal to assist short gut syndrome side effects pending further PO GI tolerance documentation per MD discretion 7. scaled wt this admit; subsequent weekly wts Addendum: 09/19/21 at [address] Amended: Links added.
--- NOTE | 2021-09-19 17:29 | NUR ---
Student documentation: I have reviewed all interventions, assessments performed and documented by Karri DAVIS from [facility]. Student Medication Administration: For all medication-passes in the time frame from 9062-3128, all medication were reviewed, dispensed, administered and documented per hospital policy by Karri DAVIS from [facility]. All heparin and Lovenox was approved and verified by primary RN to give.
--- NOTE | 2021-09-19 18:04 | NUR ---
Problems reprioritized. Patient report given, questions answered & plan of care reviewed with Toni ARMANDO.
--- NOTE | 2021-09-19 18:05 | NUR ---
Problems reprioritized. Patient report given, questions answered & plan of care reviewed with Toni ARMANDO.
[2021-09-19 18:50] VITALS: BP 135/92
[2021-09-20] VITALS: BP 141/73
[2021-09-20] MEDS: heparin sodium, porcine/PF 100unit/ml 5ML syringe IV SCH ×2 (03:00)
[2021-09-20] MEDS: normal saline 1000ml 1,000 ML IV SCH ×2 (04:25→11:31)
[2021-09-20 06:12] LABS: BASOPHILS % (AUTO) 0.3 % (0-1); EOSINOPHILS # (AUTO) 0.1 X10'3 (0-0.9); EOSINOPHILS % (AUTO) 1.4 % (0-6); HEMOGLOBIN 9.3 g/dl (14.0-17.9); MEAN CORPUSCULAR HEMOGLOBIN 27.5 PG (27.0-31.0); MEAN CORPUSCULAR HGB CONC 33.1 g/dL (33.0-36.5); MEAN CORPUSCULAR VOLUME 83.1 FL (78-98); MEAN PLATELET VOLUME 8.8 FL (7.4-10.4); MONOCYTES # (AUTO) 0.4 X10'3 (0-0.9); MONOCYTES % (AUTO) 7.5 % (2-12); NEUTROPHILS # (AUTO) 3.7 X10'3 (1.8-7.7); NEUTROPHILS % (AUTO) 70.8 % (42-75); PLATELET COUNT 169 X10'3 (140-440); RED BLOOD COUNT 3.37 X10'6 (4.70-6.10); RED CELL DISTRIBUTION WIDTH 17.6 % (11.5-14.5); WHITE BLOOD COUNT 5.2 X10'3 (4.5-11.0)
[2021-09-20 06:41] LABS: ALANINE AMINOTRANSFERASE 51 U/L (12-78); ALBUMIN 1.8 G/DL (3.4-5.0); ALBUMIN/GLOBULIN RATIO 0.5 (1.1-1.5); ALKALINE PHOSPHATASE 307 IU/L (46-116); ANION GAP 10 (8-16); ASPARTATE AMINO TRANSFERASE 62 U/L (10-37); BILIRUBIN,TOTAL 1.4 MG/DL (0.1-1.0); BLOOD UREA NITROGEN 8 MG/DL (7-18); BUN/CREATININE RATIO 5.6 (5.4-32.0); CALCIUM 7.1 MG/DL (8.5-10.1); CHLORIDE 113 MMOL/L (99-107); CREATININE 1.44 MG/DL (0.60-1.10); GLUCOSE 87 MG/DL (70-104); MAGNESIUM 1.6 MG/DL (1.5-2.4); POTASSIUM 3.6 MMOL/L (3.5-5.1); SODIUM 145 MMOL/L (135-145); TOTAL CARBON DIOXIDE 21.6 MMOL/L (24-32); TOTAL PROTEIN 5.4 G/DL (6.4-8.2); eGFR 48 ML/MIN
--- NOTE | 2021-09-20 06:49 | NUR ---
Patient in room [facility] 340. I have received report from Toni Churchill and had the opportunity to ask questions and assume patient care.
--- NOTE | 2021-09-20 06:51 | NUR ---
Problems reprioritized. Patient report given, questions answered & plan of care reviewed with GORDO. Addendum: 09/20/21 at 0651 by Luis F Villa RN Amended: Links added.
[2021-09-20] MEDS: cephalexin 500mg capsule PO SCH (07:14)
[2021-09-20] MEDS: metroNIDAZOLE 500mg tablet PO SCH (07:14)
[2021-09-20] MEDS: diphenoxylate/atropine tablet (Lomotil) PO SCH (07:15)
[2021-09-20] MEDS: levoTHYROXINE 25mcg tablet PO SCH (07:15)
[2021-09-20] MEDS: fluconazole 100mg tablet PO SCH (07:18)
[2021-09-20] MEDS: ondansetron/PF 4mg/2ml inj IV PRN (07:26)
[2021-09-20 08:00] VITALS: BP 132/70
[2021-09-20] MEDS: K and/or MAG REPLACEMENT MC SCH (08:00)
[2021-09-20] MEDS ORDERED: FLUC100T9 PO ×2 (11:59)
== END 2021-09-20 12:50 | disposition home or self-care (01) | DRG 871 ==
LOC: ER 21:47 → ED HOLD 09-15 03:25 → SUR 3N 09-15 20:50
PROVIDERS: ADMIT Internal Medicine; ATTEND Family Medicine
DX: A41.89 Other specified sepsis (principal); N17.0 Acute kidney failure with tubular necrosis; E87.2 Acidosis; D61.818 Other pancytopenia; B37.49 Other urogenital candidiasis; K91.2 Postsurgical malabsorption, not elsewhere classified; E44.0 Moderate protein-calorie malnutrition; N13.6 Pyonephrosis; N18.30 Chronic kidney disease, stage 3 unspecified; D49.0 Neoplasm of unspecified behavior of digestive system; R16.0 Hepatomegaly, not elsewhere classified; R74.8 Abnormal levels of other serum enzymes; E78.00 Pure hypercholesterolemia, unspecified; K83.8 Other specified diseases of biliary tract; R74.01 Elevation of levels of liver transaminase levels; E78.5 Hyperlipidemia, unspecified; I25.10 Atherosclerotic heart disease of native coronary artery without angina pectoris; I95.1 Orthostatic hypotension; Z20.822 Contact with and (suspected) exposure to COVID-19; Z66 Do not resuscitate; Z80.0 Family history of malignant neoplasm of digestive organs; Z87.442 Personal history of urinary calculi; Z90.79 Acquired absence of other genital organ(s); Z95.1 Presence of aortocoronary bypass graft; Z91.040 Latex allergy status; Z82.49 Family history of ischemic heart disease and other diseases of the circulatory system; Z68.22 Body mass index [BMI] 22.0-22.9, adult
CPT/HCPCS: 36415; 71045; 71250; 74176; 76700; 80048; 80053; 80076; 81001; 83605; 83690; 83735; 84443; 84484; 85008; 85025; 87040; 87081; 87088; 87635; 93005; 93306; 96365; 96374; 97110; 97116; 97162; 99284; 99285; C9803; G0378; J0692; J0696; J1642; J2405; J3490; J7030

== ENCOUNTER 2021-09-21 15:06 | Inpatient (IN) | payer MEDICARE, BC ==
[~2021-09-21] VITALS: Ht 182.9 cm; Wt 81.8 kg
[~2021-09-21 15:06] MED LIST changes: +DIPH-186 PO; -DOXY25TA19 PO; -FLO0.1T PO; -FLO0.4C PO; +FLUC100T9 PO; -GABA-530 PO; -MAGN400T29 PO; -MV-M1TAB19 PO
[2021-09-21] MEDS ORDERED: acetaminophen 325mg tablet PO ONE (15:15)
[2021-09-21] MEDS ORDERED: normal saline 1000ml 1,000 ML IV ONE (15:15)
[2021-09-21] MEDS ORDERED: piperacillin/tazo 4.5gm/100ml 100 ML IV ONE (15:59)
[2021-09-21] MEDS ORDERED: VANCOMYCIN 1,500MG inj. 1,500 MG in normal saline 500ml IV soln 500 ML IV ONE (16:00)
[2021-09-21 16:19] LABS: BASOPHILS # (AUTO) 0.1 X10'3 (0-0.2); BASOPHILS % (AUTO) 1.1 % (0-1); EOSINOPHILS % (AUTO) 0 % (0-6); HEMATOCRIT 29.5 % (42.0-52.0); HEMOGLOBIN 9.9 g/dl (14.0-17.9); LYMPHOCYTES # (AUTO) 0.3 X10'3 (1.1-4.8); LYMPHOCYTES % (AUTO) 3.3 % (21-51); MEAN CORPUSCULAR HEMOGLOBIN 27.6 PG (27.0-31.0); MEAN CORPUSCULAR HGB CONC 33.7 g/dL (33.0-36.5); MEAN CORPUSCULAR VOLUME 81.8 FL (78-98); MONOCYTES # (AUTO) 0.3 X10'3 (0-0.9); MONOCYTES % (AUTO) 3.3 % (2-12); NEUTROPHILS # (AUTO) 8.4 X10'3 (1.8-7.7); NEUTROPHILS % (AUTO) 92.3 % (42-75); PLATELET COUNT 187 X10'3 (140-440); RED CELL DISTRIBUTION WIDTH 17.8 % (11.5-14.5); WHITE BLOOD COUNT 9.1 X10'3 (4.5-11.0)
[2021-09-21 16:20] LABS: ALANINE AMINOTRANSFERASE 62 U/L (12-78); ALBUMIN 2.3 G/DL (3.4-5.0); ALBUMIN/GLOBULIN RATIO 0.6 (1.1-1.5); ALKALINE PHOSPHATASE 392 IU/L (46-116); ANION GAP 14 (8-16); ASPARTATE AMINO TRANSFERASE 92 U/L (10-37); BILIRUBIN,TOTAL 2.4 MG/DL (0.1-1.0); BLOOD UREA NITROGEN 13 MG/DL (7-18); BUN/CREATININE RATIO 7.4 (5.4-32.0); CALCIUM 7.9 MG/DL (8.5-10.1); CHLORIDE 107 MMOL/L (99-107); CREATININE 1.76 MG/DL (0.60-1.10); GLUCOSE 105 MG/DL (70-104); SODIUM 141 MMOL/L (135-145); TOTAL PROTEIN 6.3 G/DL (6.4-8.2); eGFR 38 ML/MIN
[2021-09-21 16:21] LABS: POTASSIUM 3.6 MMOL/L (3.5-5.1)
[2021-09-21] MEDS: normal saline 1000ml 1,000 ML IV SCH (16:55)
[2021-09-21] MEDS ORDERED: acetaminophen 325mg tablet PO PRN (16:55)
[2021-09-21] MEDS ORDERED: magnesium hydroxide 30ml (MOM) UD suspension PO PRN (16:55)
[2021-09-21] MEDS: levoFLOXACIN-Levaquin 500mg/D5 100 ML IV SCH (19:00)
[2021-09-21] MEDS: docusate sod 100mg capsule PO SCH (20:00)
[2021-09-21] MEDS: calcium carbonate/vitamin D3 tablet PO SCH (20:00)
[2021-09-21] MEDS: cephalexin 500mg capsule PO SCH (20:00)
[2021-09-21 21:47] LABS: COLOR,URINE YELLOW (Yellow); UA COLLECTION TYPE VOIDED
[2021-09-21 21:48] LABS: CLARITY,URINE SLIGHTLY CLOUDY (Clear); GLUCOSE, URINE NEGATIVE (Neg); KETONES,URINE 15 mg/dl (Neg); NITRITES, URINE NEGATIVE (Neg); OCCULT BLOOD,URINE SMALL (Neg); PROTEIN,URINE TRACE mg/dl (Neg)
[2021-09-21 21:49] LABS: LEUKOCYTE ESTERASE ,URINE MODERATE (Neg); UROBILINOGEN,URINE 0.2 E.U/dL (0.2-1.0)
[2021-09-21 21:52] LABS: MUCUS STRANDS FEW /LPF (Neg); SQUAMOUS EPITHELIAL CELL,UR FEW /LPF (FEW)
[2021-09-21 21:53] LABS: BACTERIA,URINE FEW /HPF (Neg); RBC,URINE 0-2 /HPF (0-2); WBC,URINE 30-50 /HPF (0-4)
[2021-09-21 21:56] LABS: YEAST MODERATE /HPF (NEGATIVE)
[2021-09-22 02:03] LABS: BASOPHILS % (AUTO) 0.4 % (0-1); EOSINOPHILS % (AUTO) 0.3 % (0-6); HEMATOCRIT 29.4 % (42.0-52.0); HEMOGLOBIN 9.8 g/dl (14.0-17.9); LYMPHOCYTES # (AUTO) 0.9 X10'3 (1.1-4.8); LYMPHOCYTES % (AUTO) 8.3 % (21-51); MEAN CORPUSCULAR HGB CONC 33.5 g/dL (33.0-36.5); MEAN CORPUSCULAR VOLUME 83.6 FL (78-98); MEAN PLATELET VOLUME 9.1 FL (7.4-10.4); MONOCYTES # (AUTO) 0.6 X10'3 (0-0.9); MONOCYTES % (AUTO) 5.3 % (2-12); NEUTROPHILS # (AUTO) 9.1 X10'3 (1.8-7.7); NEUTROPHILS % (AUTO) 85.7 % (42-75); PLATELET COUNT 171 X10'3 (140-440); RED BLOOD COUNT 3.52 X10'6 (4.70-6.10); RED CELL DISTRIBUTION WIDTH 17.6 % (11.5-14.5); WHITE BLOOD COUNT 10.6 X10'3 (4.5-11.0)
[2021-09-22 02:12] LABS: ALANINE AMINOTRANSFERASE 51 U/L (12-78); ALBUMIN/GLOBULIN RATIO 0.5 (1.1-1.5); ALKALINE PHOSPHATASE 328 IU/L (46-116); ANION GAP 10 (8-16); ASPARTATE AMINO TRANSFERASE 64 U/L (10-37); BILIRUBIN,TOTAL 2.2 MG/DL (0.1-1.0); BLOOD UREA NITROGEN 13 MG/DL (7-18); BUN/CREATININE RATIO 7.6 (5.4-32.0); CALCIUM 7.6 MG/DL (8.5-10.1); CHLORIDE 110 MMOL/L (99-107); CREATININE 1.71 MG/DL (0.60-1.10); GLUCOSE 102 MG/DL (70-104); POTASSIUM 3.8 MMOL/L (3.5-5.1); SODIUM 142 MMOL/L (135-145); TOTAL CARBON DIOXIDE 21.6 MMOL/L (24-32); TOTAL PROTEIN 5.7 G/DL (6.4-8.2); eGFR 39 ML/MIN
[2021-09-22] MEDS: normal saline 1000ml 1,000 ML IV SCH ×3 (03:01→22:19)
[2021-09-22] MEDS: levoTHYROXINE 25mcg tablet PO SCH (10:01)
[2021-09-22] MEDS: calcium carbonate/vitamin D3 tablet PO SCH ×2 (10:01→19:11)
[2021-09-22] MEDS: cephalexin 500mg capsule PO SCH (10:01)
[2021-09-22] MEDS: docusate sod 100mg capsule PO SCH ×2 (10:01→19:28)
[2021-09-22] MEDS: enoxaparin 40mg/0.4ml syringe SUBCUT SCH (10:02)
--- NOTE | 2021-09-22 10:30 | NUR ---
Patient in room PCU 3018. I have received report from Emmie ARMANDO and had the opportunity to ask questions and assume patient care.
[2021-09-22 11:00] VITALS: BP 135/66
[2021-09-22 15:00] VITALS: BP 112/52
[2021-09-22] MEDS ORDERED: FLUC100T PO (15:54)
[2021-09-22] MEDS: vancomycin/NS 1 GM ADD-VANTAGE 250 ML IV SCH (17:43)
[2021-09-22 18:00] VITALS: BP 125/60
--- NOTE | 2021-09-22 18:27 | NUR ---
Problems reprioritized. Patient report given, questions answered & plan of care reviewed with In RN.
[2021-09-22] MEDS: levoFLOXACIN-Levaquin 500mg/D5 100 ML IV SCH (19:12)
[2021-09-22 22:00] VITALS: BP 107/74
[2021-09-22] MEDS: temazepam 15mg capsule PO PRN (22:18)
[2021-09-23 02:00] VITALS: BP 143/70
[2021-09-23 06:00] VITALS: BP 145/73
[2021-09-23 06:45] LABS: BASOPHILS % (AUTO) 0.9 % (0-1); HEMATOCRIT 28.3 % (42.0-52.0); HEMOGLOBIN 9.4 g/dl (14.0-17.9); LYMPHOCYTES # (AUTO) 0.9 X10'3 (1.1-4.8); LYMPHOCYTES % (AUTO) 19.2 % (21-51); MEAN CORPUSCULAR HEMOGLOBIN 27.4 PG (27.0-31.0); MEAN CORPUSCULAR HGB CONC 33.3 g/dL (33.0-36.5); MEAN CORPUSCULAR VOLUME 82.4 FL (78-98); MEAN PLATELET VOLUME 8.8 FL (7.4-10.4); MONOCYTES # (AUTO) 0.4 X10'3 (0-0.9); MONOCYTES % (AUTO) 8.2 % (2-12); NEUTROPHILS # (AUTO) 3.5 X10'3 (1.8-7.7); NEUTROPHILS % (AUTO) 70.7 % (42-75); PLATELET COUNT 172 X10'3 (140-440); RED BLOOD COUNT 3.43 X10'6 (4.70-6.10); RED CELL DISTRIBUTION WIDTH 18.2 % (11.5-14.5); WHITE BLOOD COUNT 4.9 X10'3 (4.5-11.0)
[2021-09-23 06:59] LABS: ALANINE AMINOTRANSFERASE 45 U/L (12-78); ALBUMIN/GLOBULIN RATIO 0.5 (1.1-1.5); ALKALINE PHOSPHATASE 320 IU/L (46-116); ANION GAP 13 (8-16); ASPARTATE AMINO TRANSFERASE 64 U/L (10-37); BLOOD UREA NITROGEN 15 MG/DL (7-18); CALCIUM 7.7 MG/DL (8.5-10.1); CHLORIDE 110 MMOL/L (99-107); GLUCOSE 82 MG/DL (70-104); POTASSIUM 3.6 MMOL/L (3.5-5.1); SODIUM 142 MMOL/L (135-145); TOTAL CARBON DIOXIDE 19.1 MMOL/L (24-32); TOTAL PROTEIN 5.9 G/DL (6.4-8.2); eGFR 46 ML/MIN
[2021-09-23] MEDS: docusate sod 100mg capsule PO SCH ×2 (08:00→21:20)
[2021-09-23] MEDS: enoxaparin 40mg/0.4ml syringe SUBCUT SCH (08:01)
[2021-09-23] MEDS: levoTHYROXINE 25mcg tablet PO SCH (08:01)
[2021-09-23] MEDS: calcium carbonate/vitamin D3 tablet PO SCH ×2 (08:01→21:20)
[2021-09-23] MEDS: normal saline 1000ml 1,000 ML IV SCH ×2 (08:55→18:55)
[2021-09-23 11:00] VITALS: BP 134/64
--- NOTE | 2021-09-23 12:30 | NUR ---
PAGER ID: [phone] MESSAGE: [id number] Deng Ballard- pt had rigors shortly after you left. Fever now 100.7. will give tylenol as ordered. doris [id number]
[2021-09-23] MEDS: ondansetron/PF 4mg/2ml inj IV PRN (12:48)
[2021-09-23] MEDS: mag hydrox/Alum hydrox/simeth 30ml oral suspension PO PRN (12:49)
--- NOTE | 2021-09-23 12:54 | NUR ---
Mild fever, paged mD Espinal regarding temp 100.7. no longer has rigors. upset stomach, gave zofran and maalox.
--- NOTE | 2021-09-23 14:00 | NUR ---
Nutrition Consult "short gut syndrome, Pt admit DX sepsis, LLE PNA, and fatigue per EMR. Pt hx colon CA and carcinoid tumor requiring chemotherapy last four weeks ago; follows Dr. Segal for short gut per MD note. Pt pending scaled wt this admit w/ reported wt stable past 6 months compared to MD report. Pt reports 14-23 pounds lost past 3 months per RN Malnutrition Screen this admit. Pt has overall stable wt hx since February using current reported wt pending scaled wt this admit. Pt has no edema/wounds, no significant weakness noted, and previously receiving TPN for main nutrition intake ~3week LATHE TURNER given hx short gut syndrome. RD d/w RN regarding No Concentrated Sweets diet addition to regular if MD agreeable. In meantime dietary notified to not send: sugar-containing condiments, juices, raw vegetables, canned fruits, and caffeine w/ meals. Essentially NCS diet w/ further restrictions to optimize PO tolerance w/ hx short gut syndrome. Pt lacks minimum malnutrition criteria at this time. Will monitor for additional criteria this admit. 1. advance to regular/No Concentrated Sweets diet if MD agreeable; encourage PO 2. limit high sugar-containing products, high insoluble fiber products, and caffeine given short gut syndrome hx 3. Monitor for ONS needs pending PO hx/tolerance this admit 4. may benefit from bariatric MVI given short gut syndrome hx per MD discretion 5. consider routine anti-diarrheal to assist short gut syndrome side effects pending further PO GI tolerance documentation per MD discretion 6. IF persistent GI intolerance of PO meals; consider TPN given hx short gut syndrome. IF continuous TPN via pt central port; recommend 2:1 Clinimix E 5/20 at 102ml/hr goal w/ additional 250 mL 20% intralipids to run at 20.83 mL/hr for 12 hrs two days a week on Tuesdays and Fridays. Would provide 2448ml volume/day, 122g AA, 490g DEX (4.50mg/kg/min), and 2154kcals. Lipids to provide an additional 500 kcal on Tuesdays and Fridays, total weekly average kcal is 2297 kcal/day 7. scaled wt this admit; subsequent weekly wts Addendum: 09/23/21 at [address] Amended: Links added.
[2021-09-23] MEDS: vancomycin/NS 1 GM ADD-VANTAGE 250 ML IV SCH (17:29)
[2021-09-23 19:00] VITALS: BP 119/80
[2021-09-23] MEDS: levoFLOXACIN-Levaquin 500mg/D5 100 ML IV SCH (21:20)
[2021-09-23 23:00] VITALS: BP 101/48
[2021-09-24 03:00] VITALS: BP 99/54
[2021-09-24] MEDS: normal saline 1000ml 1,000 ML IV SCH ×2 (04:55→14:55)
[2021-09-24] MEDS: docusate sod 100mg capsule PO SCH ×2 (08:00→20:00)
[2021-09-24 08:03] LABS: BASOPHILS % (AUTO) 0.3 % (0-1); EOSINOPHILS # (AUTO) 0.1 X10'3 (0-0.9); EOSINOPHILS % (AUTO) 0.7 % (0-6); HEMATOCRIT 27.6 % (42.0-52.0); HEMOGLOBIN 9.2 g/dl (14.0-17.9); LYMPHOCYTES # (AUTO) 0.9 X10'3 (1.1-4.8); LYMPHOCYTES % (AUTO) 9.7 % (21-51); MEAN CORPUSCULAR HEMOGLOBIN 27.8 PG (27.0-31.0); MEAN CORPUSCULAR HGB CONC 33.5 g/dL (33.0-36.5); MEAN CORPUSCULAR VOLUME 83.2 FL (78-98); MEAN PLATELET VOLUME 9.6 FL (7.4-10.4); MONOCYTES # (AUTO) 0.5 X10'3 (0-0.9); MONOCYTES % (AUTO) 5.4 % (2-12); NEUTROPHILS # (AUTO) 7.4 X10'3 (1.8-7.7); NEUTROPHILS % (AUTO) 83.9 % (42-75); PLATELET COUNT 173 X10'3 (140-440); RED BLOOD COUNT 3.32 X10'6 (4.70-6.10); RED CELL DISTRIBUTION WIDTH 18.2 % (11.5-14.5); WHITE BLOOD COUNT 8.8 X10'3 (4.5-11.0)
[2021-09-24 08:18] LABS: ANION GAP 11 (8-16); BLOOD UREA NITROGEN 14 MG/DL (7-18); BUN/CREATININE RATIO 8.9 (5.4-32.0); CHLORIDE 109 MMOL/L (99-107); CREATININE 1.58 MG/DL (0.60-1.10); GLUCOSE 92 MG/DL (70-104); SODIUM 140 MMOL/L (135-145); TOTAL CARBON DIOXIDE 20.3 MMOL/L (24-32)
[2021-09-24 08:19] LABS: ALANINE AMINOTRANSFERASE 37 U/L (12-78); ALBUMIN 1.8 G/DL (3.4-5.0); ALBUMIN/GLOBULIN RATIO 0.5 (1.1-1.5); ALKALINE PHOSPHATASE 286 IU/L (46-116); ASPARTATE AMINO TRANSFERASE 52 U/L (10-37); BILIRUBIN,TOTAL 1.3 MG/DL (0.1-1.0); CALCIUM 7.4 MG/DL (8.5-10.1); TOTAL PROTEIN 5.4 G/DL (6.4-8.2); eGFR 43 ML/MIN
[2021-09-24] MEDS: levoTHYROXINE 25mcg tablet PO SCH (08:35)
[2021-09-24] MEDS: calcium carbonate/vitamin D3 tablet PO SCH ×2 (08:36→20:22)
[2021-09-24] MEDS: enoxaparin 40mg/0.4ml syringe SUBCUT SCH (08:36)
[2021-09-24] MEDS: mag hydrox/Alum hydrox/simeth 30ml oral suspension PO PRN ×2 (08:41→20:48)
[2021-09-24] MEDS: ondansetron/PF 4mg/2ml inj IV PRN ×2 (08:41→20:48)
--- NOTE | 2021-09-24 10:17 | NUR ---
Discussed pt concern with md benton regarding Tunneled cath. awaiting to hear plan
--- NOTE | 2021-09-24 12:59 | NUR ---
Paged md benton regarding no piv access and we couldn't start anything piv. Also inquired as to plan with tunneled central line Addendum: 09/24/21 at 1302 by Ezequiel Forman RN MD Benton called back to charge nurse- she is aware I am told and working on it.
--- NOTE | 2021-09-24 14:45 | NUR ---
CAll to angio to f/u on cath removal. Need PICC nurse to access piv. PICC nurse called back that she would be up place
[2021-09-24] MEDS ORDERED: LIDOcaine 1%/PF 5ML 10 MG/ML VIAL ONE (15:25)
[2021-09-24] MEDS ORDERED: VANCOMYCIN LEVEL IV ONE (16:30)
[2021-09-24 18:00] VITALS: BP 129/58
--- NOTE | 2021-09-24 18:00 | NUR ---
Patient in room PCU 3018. I have received report from FAYE ARMANDO and had the opportunity to ask questions and assume patient care.
--- NOTE | 2021-09-24 19:12 | NUR ---
Problems reprioritized. Patient report given, questions answered & plan of care reviewed with Odalys ARMANDO .
[2021-09-24] MEDS: temazepam 15mg capsule PO PRN (20:22)
[2021-09-24] MEDS: diphenoxylate/atropine tablet (Lomotil) PO PRN (20:22)
[2021-09-24] MEDS: levoFLOXACIN-Levaquin 500mg/D5 100 ML IV SCH (20:49)
[2021-09-24 22:00] VITALS: BP 135/89
[2021-09-25] MEDS: normal saline 1000ml 1,000 ML IV SCH ×3 (00:55→20:55)
[2021-09-25 06:00] VITALS: BP_SYST 130; BP_SYST 187; BP_DIAS 64; BP_DIAS 81
--- NOTE | 2021-09-25 06:15 | NUR ---
Patient in room PCU 3018. I have received report from Odalys ARMANDO and had the opportunity to ask questions and assume patient care.
--- NOTE | 2021-09-25 06:34 | NUR ---
Problems reprioritized. Patient report given, questions answered & plan of care reviewed with FAYE ARMANDO.
[2021-09-25 06:54] LABS: BASOPHILS % (AUTO) 0.6 % (0-1); EOSINOPHILS # (AUTO) 0.1 X10'3 (0-0.9); EOSINOPHILS % (AUTO) 1.2 % (0-6); HEMATOCRIT 27.8 % (42.0-52.0); HEMOGLOBIN 9.2 g/dl (14.0-17.9); LYMPHOCYTES # (AUTO) 0.8 X10'3 (1.1-4.8); MEAN CORPUSCULAR HEMOGLOBIN 27.7 PG (27.0-31.0); MEAN CORPUSCULAR HGB CONC 33.2 g/dL (33.0-36.5); MEAN CORPUSCULAR VOLUME 83.4 FL (78-98); MEAN PLATELET VOLUME 9.2 FL (7.4-10.4); MONOCYTES # (AUTO) 0.5 X10'3 (0-0.9); MONOCYTES % (AUTO) 10.3 % (2-12); NEUTROPHILS # (AUTO) 3.7 X10'3 (1.8-7.7); NEUTROPHILS % (AUTO) 71.9 % (42-75); PLATELET COUNT 160 X10'3 (140-440); RED BLOOD COUNT 3.33 X10'6 (4.70-6.10); RED CELL DISTRIBUTION WIDTH 18.7 % (11.5-14.5); WHITE BLOOD COUNT 5.1 X10'3 (4.5-11.0)
[2021-09-25 06:58] LABS: ALANINE AMINOTRANSFERASE 36 U/L (12-78); ALBUMIN 1.8 G/DL (3.4-5.0); ALBUMIN/GLOBULIN RATIO 0.5 (1.1-1.5); ALKALINE PHOSPHATASE 256 IU/L (46-116); ANION GAP 9 (8-16); ASPARTATE AMINO TRANSFERASE 46 U/L (10-37); BILIRUBIN,TOTAL 1.2 MG/DL (0.1-1.0); BLOOD UREA NITROGEN 12 MG/DL (7-18); BUN/CREATININE RATIO 8.1 (5.4-32.0); CALCIUM 7.5 MG/DL (8.5-10.1); CHLORIDE 110 MMOL/L (99-107); CREATININE 1.48 MG/DL (0.60-1.10); GLUCOSE 97 MG/DL (70-104); POTASSIUM 3.7 MMOL/L (3.5-5.1); SODIUM 142 MMOL/L (135-145); TOTAL CARBON DIOXIDE 23.4 MMOL/L (24-32); TOTAL PROTEIN 5.5 G/DL (6.4-8.2); eGFR 46 ML/MIN
--- NOTE | 2021-09-25 07:19 | NUR ---
Pt sleeping, rr wnl, chest rise fall, good color. Addendum: 09/25/21 at 0721 by Ezequile Forman RN at 0630
[2021-09-25] MEDS: docusate sod 100mg capsule PO SCH ×2 (08:00→19:49)
[2021-09-25] MEDS: levoTHYROXINE 25mcg tablet PO SCH (08:11)
[2021-09-25] MEDS: calcium carbonate/vitamin D3 tablet PO SCH ×2 (08:11→19:39)
[2021-09-25] MEDS: enoxaparin 40mg/0.4ml syringe SUBCUT SCH (08:12)
[2021-09-25 08:28] LABS: ANISOCYTOSIS 2+; HYPOCHROMASIA 1+; PLATELET ESTIMATE NORMAL; POLYCHROMASIA 1+
[2021-09-25 08:29] LABS: ELLIPTOCYTES FEW
[2021-09-25 11:00] VITALS: BP 123/77
[2021-09-25 15:00] VITALS: BP 141/75
[2021-09-25 18:00] VITALS: BP 130/76
--- NOTE | 2021-09-25 18:20 | NUR ---
Problems reprioritized. Patient report given, questions answered & plan of care reviewed with Odalys ARMANDO.
--- NOTE | 2021-09-25 18:23 | NUR ---
Patient in room PCU 3018. I have received report from axel eagle and had the opportunity to ask questions and assume patient care.
[2021-09-25] MEDS: mag hydrox/Alum hydrox/simeth 30ml oral suspension PO PRN (19:39)
[2021-09-25] MEDS: levoFLOXACIN-Levaquin 500mg/D5 100 ML IV SCH (19:39)
[2021-09-25] MEDS: diphenoxylate/atropine tablet (Lomotil) PO PRN (19:40)
[2021-09-25 22:00] VITALS: BP 143/63
--- NOTE | 2021-09-25 23:43 | NUR ---
Problems reprioritized. Patient report given, questions answered & plan of care reviewed with MIK ARMANDO.
--- NOTE | 2021-09-25 23:45 | NUR ---
Patient in room PCU 3018. I have received report from TR Morrow and had the opportunity to ask questions and assume patient care.
[2021-09-26 03:00] VITALS: BP 151/76
[2021-09-26 06:00] VITALS: BP 155/105
--- NOTE | 2021-09-26 06:41 | NUR ---
Problems reprioritized. Patient report given, questions answered & plan of care reviewed with TR Khan.
--- NOTE | 2021-09-26 06:43 | NUR ---
Patient in room PCU 3018. I have received report from Nadiya ARMANDO and had the opportunity to ask questions and assume patient care.
[2021-09-26] MEDS: normal saline 1000ml 1,000 ML IV SCH (06:55)
[2021-09-26 07:27] LABS: BASOPHILS % (AUTO) 0.8 % (0-1); EOSINOPHILS # (AUTO) 0.1 X10'3 (0-0.9); EOSINOPHILS % (AUTO) 1.4 % (0-6); HEMATOCRIT 30.4 % (42.0-52.0); LYMPHOCYTES # (AUTO) 0.8 X10'3 (1.1-4.8); LYMPHOCYTES % (AUTO) 19.4 % (21-51); MEAN CORPUSCULAR HEMOGLOBIN 27.3 PG (27.0-31.0); MEAN CORPUSCULAR VOLUME 82.6 FL (78-98); MONOCYTES # (AUTO) 0.5 X10'3 (0-0.9); MONOCYTES % (AUTO) 10.9 % (2-12); NEUTROPHILS # (AUTO) 2.9 X10'3 (1.8-7.7); NEUTROPHILS % (AUTO) 67.5 % (42-75); PLATELET COUNT 181 X10'3 (140-440); RED BLOOD COUNT 3.67 X10'6 (4.70-6.10); RED CELL DISTRIBUTION WIDTH 18.5 % (11.5-14.5); WHITE BLOOD COUNT 4.2 X10'3 (4.5-11.0)
[2021-09-26 07:45] LABS: ALANINE AMINOTRANSFERASE 37 U/L (12-78); ALBUMIN/GLOBULIN RATIO 0.5 (1.1-1.5); ALKALINE PHOSPHATASE 255 IU/L (46-116); ANION GAP 9 (8-16); ASPARTATE AMINO TRANSFERASE 45 U/L (10-37); BILIRUBIN,TOTAL 1.1 MG/DL (0.1-1.0); BLOOD UREA NITROGEN 10 MG/DL (7-18); BUN/CREATININE RATIO 6.6 (5.4-32.0); CALCIUM 7.8 MG/DL (8.5-10.1); CHLORIDE 111 MMOL/L (99-107); CREATININE 1.52 MG/DL (0.60-1.10); GLUCOSE 96 MG/DL (70-104); POTASSIUM 3.9 MMOL/L (3.5-5.1); SODIUM 144 MMOL/L (135-145); TOTAL CARBON DIOXIDE 23.8 MMOL/L (24-32); TOTAL PROTEIN 5.9 G/DL (6.4-8.2); eGFR 45 ML/MIN
[2021-09-26] MEDS: docusate sod 100mg capsule PO SCH (08:00)
[2021-09-26] MEDS: enoxaparin 40mg/0.4ml syringe SUBCUT SCH (08:42)
[2021-09-26] MEDS: levoTHYROXINE 25mcg tablet PO SCH (08:43)
[2021-09-26] MEDS: calcium carbonate/vitamin D3 tablet PO SCH (08:43)
--- NOTE | 2021-09-26 11:00 | NUR ---
PT IS BEING DISCHARGED NO NEED FOR VITALS
[2021-09-26] MEDS ORDERED: LEVO500T90 PO (12:46)
--- NOTE | 2021-09-26 13:54 | NUR ---
PT IS STABLE FOR DISCHARGE, IV DC AND CANULA INTACT, ALL BELONGINGS TAKEN WITH PT, ALL DC INFO WAS GONE OVER AND NO FURTHER QUESTIONS ASKED, PT WHEELED DOWN IN WHEEL CHAIR AND LEFT WITH FRIEND IN PRIVATE VEHICLE.
== END 2021-09-26 14:08 | disposition home health service (06) | DRG 871 ==
LOC: ER 15:06 → ED HOLD 16:57 → PCU 3S 09-22 08:25
PROVIDERS: ADMIT Family Medicine; ATTEND Family Medicine
PROC: 0JPT3XZ Removal of Tunneled Vascular Access Device from Trunk Subcutaneous Tissue and Fascia, Percutaneous Approach (ICD-10-PCS; principal; 2021-09-24)
DX: A41.53 Sepsis due to Serratia (principal); J18.9 Pneumonia, unspecified organism; K91.2 Postsurgical malabsorption, not elsewhere classified; N39.0 Urinary tract infection, site not specified; E03.9 Hypothyroidism, unspecified; E78.00 Pure hypercholesterolemia, unspecified; Z20.822 Contact with and (suspected) exposure to COVID-19; Z79.2 Long term (current) use of antibiotics; Z80.0 Family history of malignant neoplasm of digestive organs; Z95.1 Presence of aortocoronary bypass graft; Z91.040 Latex allergy status; Z82.49 Family history of ischemic heart disease and other diseases of the circulatory system; Z79.899 Other long term (current) drug therapy
CPT/HCPCS: 36415; 36589; 71045; 76937; 80053; 80202; 81001; 83605; 84145; 85008; 85025; 87040; 87077; 87088; 87186; 87635; 99285; C9803; G0378; J1650; J1956; J2405; J2543; J3370; J7030